=== PATIENT | female | born 1950 | race Caucasian/White ===

== ENCOUNTER 2016-11-30 14:06 | Emergency (ER) | payer OTHER, MEDICARE ==
[2016-11-30 14:15] VITALS: BP 154/93
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
== END 2016-11-30 15:26 | disposition home or self-care (01) ==
LOC: ER 14:06
DX: S09.90XA Unspecified injury of head, initial encounter (principal); S16.1XXA Strain of muscle, fascia and tendon at neck level, initial encounter; R51 Headache; V87.7XXA Person injured in collision between other specified motor vehicles (traffic), initial encounter
CPT/HCPCS: 70450; 72125; 99284